=== PATIENT | male | born 1960 | race Caucasian/White ===

== ENCOUNTER 2016-07-27 18:04 | Emergency (ER) | payer OTHER ==
[2016-07-27 18:15] VITALS: BP 153/96; PULSE 105; BMI 32.5
[2016-07-27] MEDS ORDERED: methylPREDNISolone NA SUCC 125 MG/2 ML VIAL IVPB ONE (19:46)
[2016-07-27] MEDS ORDERED: MAGNESIUM SULF 50% (8.12 MEQ/2 ML-1 GM VIAL) IVPB ONE (19:46)
[2016-07-27] MEDS ORDERED: SODIUM CHLORIDE 1,000 ML IV STA (19:46)
[2016-07-27 20:10] LABS: MCH 27.5 pg (25.7-33.7); MCHC 32.7 g/dl (32.0-35.9); MEAN CELL VOLUME 84.1 fl (80-96); MEAN PLT VOLUME 7.6 fl (7.5-11.1); PLATELET COUNT 227 K/MM3 (134-434); WHITE BLOOD COUNT 8.4 K/mm3 (4.0-10.0)
[2016-07-27] MEDS: ALBUTEROL SO4 2.5/IPRATROPIUM 0.5 INH SOL 3 ML VIAL.NEB. NEB SCH ×2 (20:20→21:59)
[2016-07-27 20:43] LABS: ALBUMIN 3.9 g/dl (3.4-5.0); CALCIUM 8.4 mg/dL (8.5-10.1)
[2016-07-27 20:45] LABS: BILIRUBIN,TOTAL 0.5 mg/dL (0.2-1.0); CREATININE 1.6 mg/dL (0.7-1.3); TOT PROT 6.5 g/dl (6.4-8.2)
--- NOTE | 2016-07-27 21:15 | PDOC ---
History of Present Illness - General Chief Complaint: Shortness of Breath Stated Complaint: SHORTNESS OF BREATH Time Seen by Provider: 07/27/16 19:36 History Source: Patient Exam Limitations: No Limitations - History of Present Illness Initial Comments: 07/27/16 21:15 55yo Male patient presents to ED c/o difficulty breathing, SOB, Asthma. Patient states he has been battling his asthma symptoms since Mar of last year. He has been prescribed prednisone continuously for his symptoms. Most recently finished 10 days course of prednisone 20mg po yesterday. Patient states he has never been intubated, or admitted for his symptoms and he does not want to be admitted. Patient also states he recently had sinus surgery last November. Timing/Duration: reports: week Severity: reports: severe Possible Cause: Yes: frequent episodes Modifying Factors: improves with: albuterol inhaler, albuterol nebulizer Associated Symptoms: reports: earache. denies: lightheadedness, nasal congestion, nasal drainage, shortness of breath, sinus infection, sore throat, wheezing Aspirin Received prior to arrival: No: no aspirin today, unknown, 81 mg x 1, 81 mg x 2, 81 mg x 3, 81 mg x 4, 325 mg x 1, provided at home, provided by EMS, provided by ED ASA Contraindications(Core Measure): No: Allergy, Other, Active Blding w/i 24 hrs., Plavix, Receiving Warfarin Beta Sharifa Contraindications(Core Measure): No: Not Prescribed, Allergy, Bradycardia (HR <60bpm), Advanced Heart Block, Pacemaker, Other Past History - Travel Traveled outside of the country in the last 30 days: No Close contact w/someone who was outside of country & ill: No - Past Medical History Allergies/Adverse Reactions: Allergies Allergy/AdvReac Type Severity Reaction Status Date / Time No Known Drug Allergies Allergy Verified 07/27/16 18:15 Home Medications: Ambulatory Orders Fluticasone Prop 0.05% Nasal [Flonase -] 1 - 2 spray NS DAILY #1 spray.pump Fluticasone/Salmeterol [Advair Hfa 115-21 Mcg Inhaler] 1 inh PO DAILY 12/09/14 Albuterol 0.083% Nebulizer Kendra [Ventolin 0.083% Nebulizer Soln -] 1 neb NEB Q4H PRN #1 box 07/27/16 Albuterol 2.5/Ipratropium 0.5 [Duoneb -] 1 amp NEB Q15M amp 07/27/16 Albuterol Sulfate Inhaler - [Ventolin HFA Inhaler -] 1 - 2 inh PO Q4H PRN #1 inhaler 07/27/16 Azithromycin [Zithromax 250mg Tablets -] 250 mg PO DAILY #4 tablet 07/27/16 Prednisone [Deltasone -] 10 mg PO ASDIR #40 tab 07/27/16 Asthma: Yes - Psycho/Social/Smoking Cessation Hx Anxiety: No Suicidal Ideation: No Smoking Status: No Smoking History: Never smoked Number of Cigarettes Smoked Daily: 0 Hx Alcohol Use: No Drug/Substance Use Hx: No Substance Use Type: None Hx Substance Use Treatment: No Respiratory Specific PMHX - Complaint Specific PMHX Angina: No Bronchitis: No Pneumonia: No Pulmonary Embolus: No TB (Tuberculosis): No Review of Systems - Review of Systems Able to Perform ROS?: Yes Is the patient limited Cameroonian proficient: No Constitutional: No: Chills, Diaphoresis, Fever HEENTM: Yes: Ear Pain. No: Blurred Vision, Double Vision Respiratory: Yes: Cough, Shortness of Breath, Wheezing. No: Stridor Cardiac (ROS): No: Chest Pain, Irregular Heart Rate, Palpitations, Chest Tightness ABD/GI: No: Diarrhea, Nausea, Poor Appetite, Poor Fluid Intake, Vomiting : No: Burning, Dysuria, Hematuria Musculoskeletal: No: Back Pain, Muscle Pain, Neck Pain Integumentary: No: Dryness, Erythema, Rash Neurological: No: Headache, Numbness, Paresthesia, Seizure, Tingling, Tremors, Weakness All Other Systems: Reviewed and Negative *Physical Exam - Vital Signs Last Vital Signs Temp Pulse Resp BP Pulse Ox 99.0 F 105 H 20 153/96 95 07/27/16 18:13 07/27/16 18:13 07/27/16 18:13 07/27/16 18:13 07/27/16 18:13 - Physical Exam General Appearance: Yes: Nourished, Moderate Distress HEENT: positive: EOMI, KATHARINE, Normal ENT Inspection, Normal Voice, Symmetrical, TMs Normal, Pharynx Normal Neck: positive: Trachea midline, Supple. negative: Stridor, Lymphadenopathy (R) , Lymphadenopathy (L) Respiratory/Chest: positive: Wheezing. negative: Normal Breath Sounds, Labored Respiration Cardiovascular: positive: Regular Rhythm, Regular Rate Gastrointestinal/Abdominal: positive: Normal Bowel Sounds, Soft Lymphatic: negative: Adenopathy Musculoskeletal: positive: Normal Inspection. negative: CVA Tenderness Extremity: positive: Normal Capillary Refill, Normal Inspection, Normal Range of Motion Integumentary: positive: Normal Color, Dry, Warm Neurologic: positive: resource conservationist II-XII NML intact, Fully Oriented, Alert, Normal Mood/ Affect, Normal Response ED Treatment Course - LABORATORY CBC & Chemistry Diagram: 07/27/16 19:50 07/27/16 19:50 - ADDITIONAL ORDERS Additional order review: Laboratory Results 07/27/16 19:50 Sodium 138 Potassium 3.4 L Chloride 104 Carbon Dioxide 28 Anion Gap 6 L BUN 19 H D Creatinine 1.6 H D Creat Clearance w eGFR 44.94 Random Glucose 100 Calcium 8.4 L Total Bilirubin 0.5 D AST 17 D ALT 29 D Alkaline Phosphatase 68 D Total Protein 6.5 Albumin 3.9 07/27/16 19:50 RBC 5.59 MCV 84.1 MCHC 32.7 RDW 14.0 MPV 7.6 - RADIOLOGY Radiology Studies Ordered: Category Date Time Status CHEST PA & LAT [RAD] Stat Radiology 07/27/16 19:46 Taken - Medications Given in the ED: ED Medications Discontinued Medications Generic Name Dose Route Start Last Admin Trade Name Freq PRN Reason Stop Dose Admin Albuterol/Ipratropium 1 amp 07/27/16 20:00 07/27/16 20:20 Duoneb - NEB 07/27/16 20:46 1 amp Q15M ALONZO Administration Sodium Chloride 1,000 mls @ 1,000 mls/hr 07/27/16 19:46 07/27/16 20:46 Normal Saline - IV 07/27/16 20:45 1,000 mls/hr ASDIR STA Administration Magnesium Sulfate 2 gm 07/27/16 19:46 07/27/16 20:46 Magnesium Sulfate IVPB 07/27/16 19:47 2 gm ONCE ONE Administration Progress Note - Progress Note Progress Note: Patient symptoms improved in comparison to initial assessment. Patient able to ambulate down james and speak in full sentence without becoming short of breath. Patient still has expiratory wheezing and rhonchi heard on auscultation. Patient is refusing admission. Discussed with patient the benefits and risk which included sudden . Patient states he would rather go home and take his neb tx every 4 hours and follow up with pulmonary MD tomorrow. Admission was again recommended and encouraged. Patient again refused. Patient instructed to call 911 and do not wait if symptoms worsen. Plan d/c home zithromax po prednisone tapered dose albuterol neb packets. *DC/Admit/Observation/Transfer Diagnosis at time of Disposition: Acute asthma exacerbation Qualifiers: Asthma severity: moderate persistent Qualified Code(s): J45.41 - Moderate persistent asthma with (acute) exacerbation - Discharge Dispostion Disposition: HOME Condition at time of disposition: Stable Admit: No - Prescriptions Prescriptions: Prednisone [Deltasone -] 10 mg PO ASDIR #40 tab Albuterol 0.083% Nebulizer Kendra [Ventolin 0.083% Nebulizer Soln -] 1 neb NEB Q4H PRN #1 box PRN Reason: Difficulty Breathing Albuterol Sulfate Inhaler - [Ventolin HFA Inhaler -] 1 - 2 inh PO Q4H PRN #1 inhaler PRN Reason: Trouble breathing Azithromycin [Zithromax 250mg Tablets -] 250 mg PO DAILY #4 tablet - Patient Instructions Printed Discharge Instructions: Asthma -- Adult Additional Instructions: FOLLOW UP WITH YOUR PULMONARY DOCTOR AND PRIMARY CARE PROVIDER DISCUSSED TOMORROW MORNING. IF YOU CHANGE YOUR MIND ABOUT BEING ADMITTED INTO HOSPITAL FOR YOUR SYMPTOMS, PLEASE RETURN FOR EVALUATION. TAKE MEDICATIONS PRESCRIBED. Print Language: FRENCH - Post Discharge Activity Work/School Note: Back to Work
[2016-07-27] MEDS ORDERED: POTASSIUM CHLORIDE TABS 20 MEQ TABLET.ER (FP) PO ONE ×2 (21:21→21:51)
[2016-07-27] MEDS ORDERED: AZITHROMYCIN 250 MG TABLET (FP) PO ONE (21:49)
[2016-07-27] MEDS ORDERED: AZITHROMYCIN 250 MG TABLET (FP) ONE (21:50)
--- NOTE | 2016-07-27 22:45 | PDOC ---
*Physical Exam - Vital Signs Last Vital Signs Temp Pulse Resp BP Pulse Ox 99.0 F 105 H 20 153/96 95 07/27/16 18:13 07/27/16 18:13 07/27/16 18:13 07/27/16 18:13 07/27/16 18:13 ED Treatment Course - LABORATORY CBC & Chemistry Diagram: 07/27/16 19:50 07/27/16 19:50 - ADDITIONAL ORDERS Additional order review: Laboratory Results 07/27/16 19:50 Sodium 138 Potassium 3.4 L Chloride 104 Carbon Dioxide 28 Anion Gap 6 L BUN 19 H D Creatinine 1.6 H D Creat Clearance w eGFR 44.94 Random Glucose 100 Calcium 8.4 L Total Bilirubin 0.5 D AST 17 D ALT 29 D Alkaline Phosphatase 68 D Total Protein 6.5 Albumin 3.9 07/27/16 19:50 RBC 5.59 MCV 84.1 MCHC 32.7 RDW 14.0 MPV 7.6 - Medications Given in the ED: ED Medications Discontinued Medications Generic Name Dose Route Start Last Admin Trade Name Lesley PRN Reason Stop Dose Admin Albuterol/Ipratropium 1 amp 07/27/16 20:00 07/27/16 21:59 Duoneb - NEB 07/27/16 20:46 1 amp Q15M ALONZO Administration Azithromycin 500 mg 07/27/16 21:49 07/27/16 21:59 Zithromax - PO 07/27/16 21:50 500 mg ONCE ONE Administration Sodium Chloride 1,000 mls @ 1,000 mls/hr 07/27/16 19:46 07/27/16 20:46 Normal Saline - IV 07/27/16 20:45 1,000 mls/hr ASDIR STA Administration Magnesium Sulfate 2 gm 07/27/16 19:46 07/27/16 20:46 Magnesium Sulfate IVPB 07/27/16 19:47 2 gm ONCE ONE Administration Methylprednisolone Sodium Succinate 125 mg 07/27/16 19:46 07/27/16 21:13 Solu-Medrol - IVPB 07/27/16 19:47 125 mg ONCE ONE Administration Potassium Chloride 40 meq 07/27/16 21:21 07/27/16 21:59 K-Dur - PO 07/27/16 21:22 40 meq ONCE ONE Administration Medical Decision Making - Medical Decision Making 07/27/16 22:45 agree with care from ANTHROPOLOGIST PHYSICAL Iker *DC/Admit/Observation/Transfer Diagnosis at time of Disposition: Acute asthma exacerbation Qualifiers: Asthma severity: moderate persistent Qualified Code(s): J45.41 - Moderate persistent asthma with (acute) exacerbation - Discharge Dispostion Disposition: HOME - Prescriptions Prescriptions: Prednisone [Deltasone -] 10 mg PO ASDIR #40 tab Prednisone 10 mg PO ASDIR #40 tablet Acetaminophen W/ Codeine Liq [Tylenol W/Codeine Oral Solution -] 5 ml PO Q6H PRN #120 ml MDD 20 mLs PRN Reason: coughing Albuterol 0.083% Nebulizer Kendra [Ventolin 0.083% Nebulizer Soln -] 1 neb NEB Q4H PRN #1 box PRN Reason: Difficulty Breathing Albuterol 0.083% Nebulizer Kendra [Ventolin 0.083% Nebulizer Soln -] 1 neb NEB Q4H PRN #1 box PRN Reason: DIFFICULTY BREATHING Albuterol Sulfate Inhaler - [Ventolin HFA Inhaler -] 1 - 2 inh PO Q4H PRN #1 inhaler PRN Reason: Trouble breathing Albuterol Sulfate Inhaler - [Ventolin HFA Inhaler -] 1 - 2 inh PO Q4H PRN #1 inhaler PRN Reason: DIFFICULTY BREATHING Azithromycin [Zithromax 250mg Tablets -] 250 mg PO DAILY #4 tablet Azithromycin [Zithromax -] 250 mg PO DAILY #4 tablet Azithromycin [Zithromax -] 250 mg PO DAILY #4 tablet - Referrals Referrals: Villa Gomez MD, MD [Primary Care Provider] - - Patient Instructions Printed Discharge Instructions: Asthma -- Adult Additional Instructions: FOLLOW UP WITH YOUR PULMONARY DOCTOR AND PRIMARY CARE PROVIDER DISCUSSED TOMORROW MORNING. IF YOU CHANGE YOUR MIND ABOUT BEING ADMITTED INTO HOSPITAL FOR YOUR SYMPTOMS, PLEASE RETURN FOR EVALUATION. TAKE MEDICATIONS PRESCRIBED. Print Language: INDONESIAN - Post Discharge Activity Work/School Note: Back to Work
[2016-07-27 22:47] VITALS: TEMP 97.9
== END 2016-07-27 22:46 | disposition home or self-care (01) ==
LOC: JER 18:04
PROC: 3E0F7GC Introduction of Other Therapeutic Substance into Respiratory Tract, Via Natural or Artificial Opening (ICD-10-PCS; principal; 2016-07-27)
PROC: 3E033GC Introduction of Other Therapeutic Substance into Peripheral Vein, Percutaneous Approach (ICD-10-PCS; 2016-07-27)
PROC: 3E0337Z Introduction of Electrolytic and Water Balance Substance into Peripheral Vein, Percutaneous Approach (ICD-10-PCS; 2016-07-27)
DX: J45.41 Moderate persistent asthma with (acute) exacerbation (principal)
CPT/HCPCS: 36415; 71020-TC; 80053; 85027; 99281-25

== ENCOUNTER 2018-06-13 04:56 | Day surgery (SDC) | payer OTHER ==
[2018-06-12 09:20] VITALS: BMI 31.1
--- NOTE | 2018-06-12 18:54 | PREOP ---
DATE OF ADMISSION: 06/13/2018 ADMISSION DIAGNOSIS: Chronic pansinusitis. HISTORY OF PRESENT ILLNESS: This 57-year-old gentleman has had a long history of sinus problems. He has undergone prior sinus surgery with good results. His most recent was in 2014. He did well, but has recently developed recurrent symptoms, including congestion, sinus pain, sinus pressure and anosmia. He also has recurrent polyps. He gets occasional shooting pain into his eyes and a lot of maxillary pressure. CT scan is significant for chronic pansinusitis. Nasal endoscopy demonstrates bilateral polyps, left greater than right. He is now admitted for endoscopic sinus surgery revision with image guidance. PAST MEDICAL HISTORY: Primary medical doctor is Dr. Villa Gomez. The patient has a past history of allergic rhinitis, asthma, cataracts, high blood pressure. He has undergone general anesthesia without reported problems. ALLERGIES: No allergies to medications. SOCIAL HISTORY: He does not smoke. PRESENT MEDICATIONS: Include allopurinol, Dulera, fluticasone nasal spray, and recent oral prednisone. He also has ProAir inhaler p.r.n. and oral Singulair. PHYSICAL EXAMINATION: General: The patient is a well-developed male, in no distress. HEENT: Head is normal. Eyes are clear. Ears are unremarkable. Nose has an intact and mildly deviated septum. The nasal mucosa is edematous. Turbinates have some edema. There is significant nasal polyposis, left greater than right. The left posterior lucina is obstructed with a polyp. LABORATORY: Preoperative labs are pending. CT scan of the paranasal sinuses performed at [facility] on April 20, 2018, shows chronic pansinusitis. There is a retention cyst in the right maxillary sinus with mucoperiosteal thickening. Left maxillary sinus had thickening with an air- fluid level. There was obstruction of the ostiomeatal units. Both ethmoid sinuses were completely opacified. The right frontal sinus is aplastic. The left frontal sinus is hypoplastic and opacified. The right sphenoid sinus has obstruction of the recess and the left sphenoid sinus had an air-fluid level with obstruction of the recess. IMPRESSION: Chronic pansinusitis. PLAN: Endoscopic sinus surgery to address ethmoid, maxillary, frontal, and sphenoid sinuses with image guidance. INFORMED CONSENT: Patient understands the indications, alternatives, nature, risks, and benefits of the proposed surgery. Potential complications including but not limited to anesthesia, bleeding, infection, recurrence, numbness, reduced sense of smell, eye injury, and brain injury were discussed in detail. He understands and accepts these risks and wishes to proceed with surgery. Questions were answered fully. OWEN FRIEDMAN M.D. CARMELO/[id number] MTDD
[2018-06-13] MEDS ORDERED: COCAINE HCL 4% TOPICAL SOLUTION 4 ML BOTTLE TP ONE ×2 (07:41→08:15)
--- NOTE | 2018-06-13 07:50 | HP ---
History & Physical Update - History History: No Change - Physical Physical: No Change - Assessment Assessment: No Change - Plan Plan: No Change
[2018-06-13] MEDS ORDERED: MIDAZOLAM HCL 2 MG/2 ML SINGLE DOSE VIAL ONE (08:09)
[2018-06-13] MEDS ORDERED: PROPOFOL 20 ML ONE ×2 (08:10→08:20)
[2018-06-13] MEDS ORDERED: ROCURONIUM BROMIDE 50 MG/5 ML VIAL ONE ×2 (08:11→08:58)
[2018-06-13] MEDS ORDERED: ceFAZolin SODIUM 1 GM VIAL IVPB ONE (08:22)
[2018-06-13] MEDS ORDERED: LIDOCAINE 1%/EPI 1:100000 (20 ML MULTI DOSE VIAL) IJ ONE ×2 (08:42)
[2018-06-13] MEDS ORDERED: ePHEDrine SULFATE 50 MG/1 ML AMPULE ONE (08:57)
[2018-06-13] MEDS ORDERED: NEOSTIGMINE METHYLSULFATE 0.5 MG/ML - 10 ML MDV ONE (09:47)
[2018-06-13] MEDS ORDERED: oxyCODONE HCL 5 MG TABLET PO PRN (10:07)
[2018-06-13] MEDS ORDERED: ONDANSETRON 4 MG/2 ML VIAL IVPUSH PRN (10:07)
[2018-06-13] MEDS ORDERED: PROMETHAZINE HCL 25 MG/1 ML VIAL IVPUSH PRN (10:07)
[2018-06-13] MEDS ORDERED: LACTATED RINGERS SOLUTION 1,000 ML IV SCH (10:15)
--- NOTE | 2018-06-13 10:18 | OP ---
Operative Note - Note: Operative Date: 06/13/18 ([id number]) Pre-Operative Diagnosis: chronic pansinusitis, nasal polyps, anosmia Operation: bilateral endosopic 1) ethmoidectomy, anterior and posterior, 2) maxillary antrostomy with removal of tissue, 3) frontal sinus exploration, 4) sphenoidotomy, 5) image guidance Findings: chronic polypoid sinusitis, thick mucus Implants: none Post-Operative Diagnosis: Same as Pre-op Surgeon: Mayito Landon Anesthesiologist/HOSPICE REGISTERED NURSE: Maci Jett MD Anesthesia: General Specimens Removed: 1) left nasal polyps and ethmoid tissue, 2) left maxillary tissue, 3 right nasal polyps and ethmoid tissue, 4) right maxillary tissue, 5) right and left ethmoid tissue (shavings) Estimated Blood Loss (mls): 50 Blood Volume Replaced (mls): 0 Operative Report Dictated: Yes
[2018-06-13] MEDS ORDERED: ACETAMINOPHEN 1000 MG/100 ML VIAL (NON FORMULARY) IVPB ONE (11:47)
[2018-06-13] MEDS ORDERED: ACETAMINOPHEN INJECTION 100 ML IVPB ONE (11:47)
--- NOTE | 2018-06-13 11:49 | OP ---
DATE OF OPERATION: 06/13/2018 PREOPERATIVE DIAGNOSIS: Chronic pansinusitis with polyposis and anosmia. POSTOPERATIVE DIAGNOSIS: Chronic pansinusitis with polyposis and anosmia. PROCEDURE: 1. Bilateral endoscopic ethmoidectomy, anterior and posterior. 2. Bilateral maxillary antrostomy with removal of tissue. 3. Bilateral endoscopic frontal sinus exploration. 4. Bilateral endoscopic sphenoidotomy. 5. Image guidance. SURGEON: Owen Landon MD ANESTHESIOLOGIST: Maci Jett MD ANESTHESIA: General via endotracheal tube. INDICATIONS: This 57-year-old gentleman has had a long history of chronic sinusitis with polyposis and anosmia. He had undergone previous surgery 2-1/2 years prior and had an excellent result. However, he has developed recent recurrence of his symptoms and has failed to improve with appropriate medical therapy. Examination demonstrates nasal polyps, left greater than right. He does have a temporary response to oral steroids. CT scan of the paranasal sinuses demonstrated chronic pansinusitis with polyps. He is now brought to surgery for treatment. FINDINGS: Chronic pansinusitis with nasal polyposis, left greater than right. PROCEDURE: Patient was brought to the operating room and placed on the operating table in the supine position. General endotracheal anesthesia was induced to a satisfactory level. He was prepped and draped in the usual fashion for surgery. The patient's CT scan data was loaded into the Flowline image-guidance system. The patient was registered and this was used intermittently throughout the case in order to identify anatomic location and guide surgical dissection. The nasal cavities were prepped by placing cocaine 4% topically on pledgets. After an appropriate time the pledgets were removed. Nasal endoscopy was performed with the 0-degree telescope. The nasal septum was intact with minor deviation. The inferior turbinates had mild edema. On the left side there was significant polyposis seen from the middle meatus and the sphenoethmoid recess. This obstructed the airway. Lidocaine with epinephrine was infiltrated into the visible polyps as well as the lateral nasal wall. Additional cocaine was packed. On the right side the middle turbinate was identified. There was polyposis anteriorly as well as some scarring and obstruction of the anterior middle meatus. Polyps were also seen coming from the superior meatus and the sphenoethmoid recess. All of these were also injected and additional cocaine packed within the mid to posterior middle meatus. The left paranasal sinuses were first addressed. The ethmoid forceps and Medtronic guided microdebrider were used to remove accessible nasal polyps. The middle turbinate was preserved. The ethmoid area was entered. The lamina papyracea and the fovea ethmoidalis were preserved. Mild to moderate oozing was noted, controlled with electrocauterization and packing. After completion of the posterior ethmoidectomy the sphenoethmoid recess was dissected of polypoid tissue. The sphenoid ostium was identified and the sinus entered. There were thick secretions. Next, the left maxillary sinus was addressed. The prior antrostomy had been obstructed by diseased tissue. Antrostomy was recreated and the sinus was suctioned of some thick secretions. Finally the left frontal sinus was addressed. The frontoethmoid recess was inspected and polypoid tissue removed. Thick secretions were suctioned from the left frontal sinus and the anatomic location was confirmed using image guidance. Attention was then turned toward the right paranasal sinuses. The scarred area of the anterior middle meatus was lysed and then polypoid tissue was removed with forceps and the Medtronic microdebrider. The ethmoid sinus was then cleared of all polypoid tissue using the microdebrider. Again the lamina papyracea and the fovea ethmoidalis were preserved. The most posterior part of the ethmoid sinus was cleared. The sphenoethmoid recess was also cleared. There were also significant polyps between the middle turbinate and the nasal septum which were removed with the microdebrider. The sphenoidotomy had been obstructed and was reopened and the sphenoid sinus suctioned of a small amount of very thick secretions. Next, the right maxillary sinus was addressed. The prior antrostomy had been obstructed by diseased tissue. The antrostomy was recreated with forceps and after removal of tissues thick secretions were also removed. Finally the right frontal sinus was addressed. The frontoethmoid recess was identified. Polypoid tissue was removed from the frontoethmoid recess and thick secretions were suctioned. A final inspection demonstrated good hemostasis. The sphenoid, maxillary and frontal sinuses had all been reopened. Nasal airways were improved. NasoPore packing was then placed within the left ethmoid sinus, right ethmoid sinus and also the right superior meatus/sphenoethmoid recess in order to minimize synechiae. Because the left side had been more inflamed and had more oozing during the case, a folded Telfa gauze was then placed in the left inferior nasal cavity. A moustache dressing was placed. A cotton ball was placed in the right nostril. Patient tolerated the procedure well. He was then awakened from general anesthesia and transferred to the PACU in stable condition. Estimated blood loss was 50 mL. The specimens included: 1. Left nasal polyp and ethmoid tissue. 2. Left maxillary sinus tissue. 3. Right nasal polyp and ethmoid tissue. 4. Right maxillary sinus tissue. 5. Left and right ethmoid tissue (shavings). There were no complications. OWEN LANDON M.D. CARMELO/[id number]
[2018-06-13] MEDS ORDERED: oxyCODONE HCL 5 MG TABLET PO ONE (13:10)
[2018-06-13] MEDS ORDERED: oxyCODONE HCL 5 MG TABLET ONE (13:11)
[2018-06-13 15:20] VITALS: BP 127/71; PULSE 82; TEMP 97.7
--- NOTE | 2018-06-15 18:31 | PATH ---
Surgical Pathology Report Patient Name: JAYSON LENZ [facility]. Rec. #: [id number] /Age/Gender: 1960 (Age: 57) / M Account: [id number] Location: [facility] Taken: 06/13/2018 Received: 06/13/2018 Reported: 06/15/2018 Physicians: Mayito Landon M.D. Specimen(s) Received A: LEFT POLYP AND ETHMOID TISSUE B: LEFT MAXILLARY TISSUE C: RIGHT POLYP AND ETHMOID TISSUE D: RIGHT AND LEFT ETHMOID TISSUE Clinical History Chronic ethmoidal/Maxillary sinusitis Final Diagnosis A. POLYP AND ETHMOID TISSUE, LEFT, TOTAL ETHMOIDECTOMY: NASAL (INFLAMMATORY) POLYP AND RESPIRATORY MUCOSA WITH CHRONIC SINUSITIS. B. MAXILLARY TISSUE, LEFT, MAXILLARY ANTROSTOMY: RESPIRATORY MUCOSA WITH CHRONIC SINUSITIS AND BONE. C. NASAL POLYP AND ETHMOID TISSUE, RIGHT, TOTAL ETHMOIDECTOMY: NASAL (INFLAMMATORY) POLYP AND RESPIRATORY MUCOSA WITH CHRONIC SINUSITIS. D. ETHMOID TISSUE, RIGHT AND LEFT, ETHMOIDECTOMY: NASAL (INFLAMMATORY) POLYP AND RESPIRATORY MUCOSA WITH CHRONIC SINUSITIS. Electronically Signed Padmini Russell M.D. Gross Description A. Received in formalin labeled "left polyp and ethmoid tissue," is a 2.4 x 2.3 x 0.3 cm aggregate of poole, irregular to polypoid portions of soft tissue. The specimen is submitted in toto in one cassette. B. Received in formalin labeled "left maxillary tissue," is a 1.2 x 0.9 x 0.2 cm aggregate of poole, irregular to polypoid portions of soft tissue. The specimen is submitted in toto in one cassette. C. Received in formalin labeled "right nasal polyp and ethmoid tissue," are 3 poole soft tissue fragments ranging from 0.5-0.9 cm in greatest dimension. The specimens are submitted in toto in one cassette. D. Received in formalin labeled "right and left ethmoid tissue," is a 5.0 x 4.3 x 0.3 cm aggregate of poole soft tissue fragments. A office machines sales representative portion is submitted in one cassette. 06/14/2018 saudi06/14/2018
== END 2018-06-13 14:55 | disposition home or self-care (01) ==
LOC: JASU-SURG 04:56
PROVIDERS: ATTEND Otolaryngology
PROC: 09TV8ZZ Resection of Left Ethmoid Sinus, Via Natural or Artificial Opening Endoscopic (ICD-10-PCS; 2018-06-13)
PROC: 09TU8ZZ Resection of Right Ethmoid Sinus, Via Natural or Artificial Opening Endoscopic (ICD-10-PCS; 2018-06-13)
PROC: 8E09XBZ Computer Assisted Procedure of Head and Neck Region (ICD-10-PCS; 2018-06-13)
PROC: 8E09XBZ Computer Assisted Procedure of Head and Neck Region (ICD-10-PCS; principal; 2018-06-13 08:00)
DX: J32.4 Chronic pansinusitis (principal); R43.0 Anosmia; J33.9 Nasal polyp, unspecified
CPT/HCPCS: 88304-TC; 94760; J0131

== ENCOUNTER 2021-07-21 18:59 | Emergency (ER) | payer OTHER ==
[2021-07-21 20:16] VITALS: BMI 31.8
[2021-07-21] MEDS ORDERED: predniSONE 20 MG TABLET (UD) PO ONE (20:24)
[2021-07-21] MEDS ORDERED: predniSONE 20 MG TABLET (UD) ONE (20:29)
[2021-07-21] MEDS ORDERED: SOTROVIMAB 500 MG in SODIUM CHLORIDE 100 ML IVPB ONE (20:34)
[2021-07-21] MEDS ORDERED: CASIRIVIMAB/IMDEVIMAB 10 ML in SODIUM CHLORIDE 100 ML IVPB ONE (21:33)
[2021-07-21 22:30] VITALS: TEMP 98.7
[2021-07-21 23:22] VITALS: BP 116/72; PULSE 98
== END 2021-07-21 23:29 | disposition home or self-care (01) ==
LOC: JER 18:59
DX: U07.1 COVID-19 (principal); R51.9 Headache, unspecified; J45.901 Unspecified asthma with (acute) exacerbation
CPT/HCPCS: 71046-TC-FY; 99284-25; 99291; 99292; Q0240